=== PATIENT | male | born 1940 | race Caucasian/White ===

== ENCOUNTER 2020-02-27 23:32 | Emergency (ER) | payer OTHER ==
[~2020-02-27] VITALS: Ht 177.8 cm; Wt 75.7 kg
[2020-02-28] MEDS ORDERED: MOBIC15 MG PO (01:54)
== END 2020-02-28 02:07 | disposition home or self-care (01) ==
LOC: ER 23:32
DX: S52.512A Displaced fracture of left radial styloid process, initial encounter for closed fracture (principal); W01.198A Fall on same level from slipping, tripping and stumbling with subsequent striking against other object, initial encounter; Y93.89 Activity, other specified; Y92.89 Other specified places as the place of occurrence of the external cause; Y99.8 Other external cause status

== ENCOUNTER 2020-04-11 12:07 | Emergency (ER) | payer OTHER ==
[~2020-04-11] VITALS: Ht 152.4 cm; Wt 77.1 kg
[~2020-04-11 12:07] MED LIST: MOBIC15 MG PO
[2020-04-11] MEDS ORDERED: TRICOR145 MG PO (12:27)
[2020-04-11] MEDS ORDERED: PNEU16DI2 IJ (12:28)
[2020-04-11] MEDS ORDERED: METFORMIN HCL1000 MG (12:28)
[2020-04-11] MEDS ORDERED: HYZAAR 50-12.51 EACH PO (12:29)
[2020-04-11] MEDS ORDERED: LIPITOR40 MG PO (12:29)
[2020-04-11] MEDS ORDERED: GLUMETZA1000 MG PO (12:30)
[2020-04-11] MEDS ORDERED: AVAPRO150 MG PO (12:48)
[2020-04-11] MEDS ORDERED: TAMS0.4C PO (12:49)
[2020-04-11] MEDS ORDERED: XELPROS2.5 ML (12:49)
[2020-04-11] MEDS ORDERED: LIOTHYRONINE IV (12:51)
[2020-04-11] MEDS ORDERED: NAPROXEN375 MG PO (19:17)
== END 2020-04-11 19:54 | disposition home or self-care (01) ==
LOC: ER 12:07
DX: M25.532 Pain in left wrist (principal); R60.0 Localized edema

== ENCOUNTER → 2023-12-15 | Emergency (ER) | payer OTHER ==
[~2023-12-15] VITALS: Ht 172.7 cm; Wt 69.4 kg
[~2023-12-15] MED LIST changes: +0.9 % SODIUM CHLORIDE 1,000 ML IV SCH; +AVAPRO150 MG PO; +DIPHENOXYLATE HCL/ATROPINE 1 UDTAB TABLET PO ONE; +FAMOTIDINE/PF 20 MG in 0.9 % SODIUM CHLORIDE 8 ML IV PUSH STA; +GLUMETZA1000 MG PO; +HYZAAR 50-12.51 EACH PO; +LIOTHYRONINE IV; +LIPITOR40 MG PO; +LOTENSIN20 MG; +METFORMIN HCL1000 MG; +METRONIDAZOLE/SODIUM CHLORIDE 500 MG/100 ML PIGGYBACK IV ONE; +NAPROXEN375 MG PO; +ONDANSETRON HCL 2 MG/ML VIAL IV ONE; +PEPCID AC20 MG PO; +PNEU16DI2 IJ; +TAMS0.4C PO; +TRICOR145 MG PO; +XELPROS2.5 ML; +ZOFRAN8 MG PO
[2023-12-15 19:55] LABS: HEMATOCRIT 37.6 % (39.0-48.0); HEMOGLOBIN 12.9 g/dL (13-16.00); MEAN CELL VOLUME 98.9 fL (80.0-100.00); MEAN CORPUSCULAR HEMOGLOBIN 33.9 pg (27.00-32.0); MEAN CORPUSCULAR HGB CONC 34.2 g/dl (32.0-36.0); PLATELET COUNT 145 K/uL (150-450); RED CELL DISTRIBUTION WIDTH 13.9 % (11.5-14.5)
[2023-12-15 20:18] LABS: ALBUMIN 3.9 gm/dL (3.4-5.0); BILIRUBIN TOTAL 1.65 mg/dL (0.3-1.2); CALCIUM 9.6 mg/dL (8.5-10.1); CREATININE SERUM 1.38 mg/dL (0.70-1.30); GFR 49.33; GLOBULINA 4.5 G/DL (2.4-3.5); POTASSIUM 4.19 mEq/L (3.5-5.1); TOTAL PROTEIN 8.4 gm/dL (6.4-8.2)
== END | disposition home or self-care (01) ==
LOC: ER 18:29
PROVIDERS: General Practice
DX: A09 Infectious gastroenteritis and colitis, unspecified (principal); R11.10 Vomiting, unspecified; I10 Essential (primary) hypertension; Z91.041 Radiographic dye allergy status

== ENCOUNTER 2024-03-01 16:11 | Emergency (ER) | payer OTHER ==
[~2024-03-01] VITALS: Ht 177.8 cm; Wt 74.8 kg
[~2024-03-01 16:11] MED LIST changes: -0.9 % SODIUM CHLORIDE 1,000 ML IV SCH; -DIPHENOXYLATE HCL/ATROPINE 1 UDTAB TABLET PO ONE; -FAMOTIDINE/PF 20 MG in 0.9 % SODIUM CHLORIDE 8 ML IV PUSH STA; -METRONIDAZOLE/SODIUM CHLORIDE 500 MG/100 ML PIGGYBACK IV ONE; -ONDANSETRON HCL 2 MG/ML VIAL IV ONE
[2024-03-01] MEDS ORDERED: LOTENSIN40 MG (16:39)
[2024-03-01] MEDS ORDERED: CRESTOR40 MG PO (16:39)
[2024-03-01] MEDS ORDERED: KETOROLAC TROMETHAMINE 30 MG VIAL IM STA (18:05)
[2024-03-01 18:58] LABS: HEMATOCRIT 39.3 % (39.0-48.0); HEMOGLOBIN 13.3 g/dL (13-16.00); MEAN CELL VOLUME 101.3 fL (80.0-100.00); MEAN CORPUSCULAR HEMOGLOBIN 34.2 pg (27.00-32.0); MEAN CORPUSCULAR HGB CONC 33.8 g/dl (32.0-36.0); PLATELET COUNT 144 K/uL (150-450); RED BLOOD COUNT 3.88 M/uL (4.00-6.00); RED CELL DISTRIBUTION WIDTH 14.5 % (11.5-14.5)
[2024-03-01 19:13] LABS: CALCIUM 9.7 mg/dL (8.5-10.1); CREATININE SERUM 1.11 mg/dL (0.70-1.30); GFR 63.26; POTASSIUM 4.01 mEq/L (3.5-5.1)
== END 2024-03-01 19:29 | disposition home or self-care (01) ==
LOC: ER 16:11
DX: J06.9 Acute upper respiratory infection, unspecified (principal); Z91.041 Radiographic dye allergy status; Z20.822 Contact with and (suspected) exposure to COVID-19
CPT/HCPCS: 36415; 96372; J1885